=== PATIENT | male | born 1980 | race Caucasian/White ===

== ENCOUNTER 2016-11-30 15:15 | Emergency (ER) | payer OTHER ==
[2016-11-30 15:24] VITALS: BP 138/90; PULSE 88; RESP 18; TEMP 98.3
[2016-11-30] MEDS ORDERED: ACETAMINOPHEN TAB 500 MG TAB PO STA (15:38)
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
--- NOTE | 2016-11-30 16:05 | XR ---
EXAMINATION TYPE: XR clavicle LT DATE OF EXAM: 11/30/2016 COMPARISON: NONE HISTORY: Pain TECHNIQUE: 2 view submitted FINDINGS: There is a fracture of the mid to distal aspect of the clavicle. Mild displacement. IMPRESSION: Displaced fracture midshaft left clavicle.
--- NOTE | 2016-11-30 16:06 | XR ---
EXAMINATION TYPE: XR shoulder complete LT DATE OF EXAM: 11/30/2016 COMPARISON: NONE HISTORY: Pain TECHNIQUE: Three views are submitted. FINDINGS: There is a fracture the mid shaft of the left clavicle. Soft tissue ossifications are seen in the reg ion of the AC joint appear well corticated and likely chronic. Glenohumeral joint is maintained. IMPRESSION: 1. Displaced mid shaft left clavicular fracture.
== END 2016-11-30 16:24 | disposition home or self-care (01) ==
LOC: EC 15:15
DX: S42.022A Displaced fracture of shaft of left clavicle, initial encounter for closed fracture (principal); V18.4XXA Pedal cycle driver injured in noncollision transport accident in traffic accident, initial encounter; Y93.55 Activity, bike riding
CPT/HCPCS: 99283